=== PATIENT | female | born 1980 | race Two or more races ===

== ENCOUNTER 2025-03-28 01:17 | Emergency (ER) | payer OTHER, SELFPAY ==
[2025-03-28 01:19] VITALS: PULSE 86; RESP 18; O2SAT 98; BMI 36.6
[2025-03-28 01:47] VITALS: BP 134/78; PULSE 83; RESP 18; TEMP 36.4; O2SAT 97
--- NOTE | 2025-03-28 03:47 | PD.EDHEAD ---
ED Head Injury RME/HPI General Chief complaint: Head Injury Stated complaint: TRIPPED AND HIT RIGHT SIDE OF HEAD ON WALL Time Seen by Provider: 03/28/25 03:31 Arrival date/time: 03/28/25 01:17 RME / HPI RME / HPI Narrative: 44-year-old female presents to the ED with a complaint of right-sided head pain secondary to tripping and hitting her head against the door jam. She states she has been dizzy for the past few days. She had a recent bout of gastroenteritis where she had 6 bouts of vomiting and approximately 4 bouts of diarrhea over 2-day period last Thursday/Thursday. She states her urine has been strong. She denies any fever, chills, cough, upper respiratory complaints, nausea or vomiting, diarrhea or abdominal pain in the last few days. MD Complaint: head injury Related Data Allergies Allergy/AdvReac Type Severity Reaction Status Date / Time No Known Allergies Allergy Verified 03/28/25 01:19 Review of Systems Review of Systems Systems Reviewed: All systems reviewed, normal except as documented Past Medical History Social History SMOKING STATUS: Never smoker ED Exam Narrative Physical exam: A&O, afebrile and non-toxic appearing 44-year-old female, no acute distress. Lung are clear, RRR, Abdomen is non-distended. Pupils are PERRL, EOMs intact. TMs and pharynx without erythema. Nares are pale and boggy. Cranial nerves II through XII grossly intact. Sensory and motor are intact to the face. Neck is supple, tenderness noted to the cervical spine area. 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 DTRs intact to bilateral upper and lower extremities. Moves all extremities well. Course Course Course Narrative: CBC reveals elevated WBCs 11.6 with normal H&H and normal platelets. CMP electrolytes are essentially normal with a minimally elevated glucose of 119. Renal function and liver function are normal. Urinalysis reveals 1+ bacteria however only 1 WBC and 1 RBC is noted with negative leukocyte esterase and negative nitrates. Urine hCG is negative and urine drug screen is negative. CT cervical spine reveals no acute process. CT brain reveals no acute process. Congenital arachnoid cyst noted. No midline shift, no mass effect, and no hemorrhage noted. Quality Measures none Orders Category Date Time Status CT cervical spine wo con Stat Exams 03/28/25 03:[address] head/brain wo con Stat Exams 03/28/25 03:51 Taken CBC Stat Lab 03/28/25 04:36 Completed CMP [Comprehensive Metabolic Panel] Stat Lab 03/28/25 04:36 Completed Drug Screen,Urine Stat Lab 03/28/25 04:40 Completed HCG Qualitative,Urine Stat Lab 03/28/25 04:40 Completed Urinalysis, C/S if Indicated Stat Lab 03/28/25 04:40 Completed Urine Culture Stat Lab 03/28/25 04:40 Received Vital Signs Vital signs: Vital Signs Temperature 97.6 F 03/28/25 01:47 Pulse Rate 83 03/28/25 01:47 Respiratory Rate 18 03/28/25 01:47 Blood Pressure 134/78 H 03/28/25 01:47 Pulse Oximetry (%) 97 03/28/25 01:47 Oxygen Delivery Method Room Air 03/28/25 01:47 Head Injury MDM Narrative MDM Narrative:: Symptoms, exam and diagnostic studies are consistent with: Closed head injury without loss of consciousness. Patient was discharged home in stable condition. Patient/family advised to follow-up with their PCP in 24-48 hours. Encouraged to return to the ED for any new or worsening symptoms. Patient data External records reviewed:: None Clinical information provided by:: patient Social determinants that could affect healthcare access:: none Patient has the following chronic illnesses:: N/A How is presenting disease/condition affected by chronic disease/condition?: no chronic disease Evaluation data The following diagnostics were reviewed and interpreted by me:: lab results and radiology exam(s) Lab and/or radiology exams considered but not ordered:: N/A Interpretation Summary: As noted above Medications / Prescriptions Medications or Prescriptions considered but not ordered:: N/A Medication administrations:: N/A Consultations Consultation(s) initiated? (list below): No Diagnosis Differential diagnosis head injury: concussion without loss of consciousness, closed head injury and subdural hematoma Most likely diagnosis given after review of the tests above:: Closed head injury without loss of consciousness. Admission Indicated Admission indicated?: not indicated Explain why admission is indicated or not indicated:: Stable for discharge Admission Request Was there a request for admission?: No Admission Attestation Admission request attestation: N/A Disposition Plan Disposition Plan: Discharge Discharge Attestation Discharge Attestation: The patient and all family members were given an opportunity to ask questions and understood the discharge instructions. Discharge instructions specifically effects, indications for sooner follow up or return to the emergency department, and the expected course of current diagnosis. Patient condition: Stable Discharge Plan Plan Patient Disposition: HOME (Self Care) Discharge Disposition comment: Stable Prescriptions/Referrals Referrals: No Primary/Family,Physician [Primary Care Provider] - In 1 week Problem List Clinical Impression: Closed head injury Patient/Caregiver Discharge Instructions Education Materials: ED Head Injury (Adult) Additional Instructions: Follow-up with your primary care physician in 24 to 48 hours. Return to the ED for any new or worsening symptoms. Print Language: Yoruba Stand Alone Forms: [place] Award Info., Patient Portal Info Letter PA/STAKING TECHNICIAN Supervising Physician PA/FRANCISCO Supervising Physician: Dr. Dugan
--- NOTE | 2025-03-28 03:51 | XR_ITS ---
Examination: CT brain head without contrast. 2-D sagittal coronal reconstructions Date and time of exam:March 28, 2025, 0406 hours INDICATIONS: Ground-level fall today with injury to the head, head pain CTDI: vol (mGy):52.5 DLP: (mGycm):1018 Technique: Multiple CT axial sections of the brain have been obtained, 5 mm slice thickness. Contrast has not been administered. 2-D sagittal, coronal reconstructions have been obtained Low dose protocols were performed. One or more of the following dose reduction techniques were used; automated exposure control, adjustment of the mA and/or KV according to patient size, use of iterative reconstruction technique. Findings: No significant ventricular enlargement. Frontal cortical atrophy Intra-axial or extra-axial hemorrhage density is not seen. No mass effect or midline shift Basal cisterns are not remarkable. Fourth ventricle is midline. Cranial vault intact. Impression: Negative for acute hemorrhage, mass effect or midline shift
--- NOTE | 2025-03-28 03:51 | XR_ITS ---
Examination: CT cervical spine without contrast 2-D sagittal reconstructions 2-D coronal reconstructions 3-D reconstructions. Exam date and time:March 28, 2029, 0406 hours INDICATIONS: Patient tripped and fell today with injury to the neck, neck pain CTDI:vol (mGy) 19 DLP: (mGycm) 361 Technique: Multiple 2 mm axial sections of the cervical spine have been obtained. The coronal and sagittal reconstructions have been obtained. 3-D reconstructions have been obtained. Low dose protocols were performed. One or more of the following dose reduction techniques were used; automated exposure control, adjustment of the mA and/or KV according to patient size, use of iterative reconstruction technique. Findings: Axial sections demonstrate intact base of the skull. C1 exhibit satisfactory relationship to the odontoid. No acute cervical vertebral body fracture seen. Alignment posterior spinous processes satisfactory. Impression: No acute cervical fracture.
--- NOTE | 2025-03-28 04:29 | PRELIM_ITS ---
CT scan of the head without intravenous contrast (axial sections with sagittal and coronal reformats). March 28, 2025 0406 hours Clinical History: Head injury, dizziness Comparison: None Findings: There is prominence of the extra-axial space overlying the parasagittal frontal convexities, cannot exclude arachnoid cysts in these regions. There is no intracranial hemorrhage or midline shift. There is good swain-white differentiation. There is no CT evidence of acute large vascular territorial infarct. Ventricles are not enlarged or effaced. There is atherosclerotic calcification along the supraclinoid left internal carotid artery. Visualized paranasal sinuses and tympanomastoid cavities are clear. The bony calvarium is intact. Impression: Possible congenital arachnoid cyst along the parasagittal frontal lobes bilaterally. This may be better evaluated with nonemergent MRI of the brain if clinically feasible. No intracranial hemorrhage or midline shift. No CT evidence of acute large vascular territorial infarct. Report Electronically Signed By: Randolph Beltran 03/28/2025 4:29:39 AM [EST]
--- NOTE | 2025-03-28 04:33 | PRELIM_ITS ---
CT scan of the cervical spine without intravenous contrast (axial sections with sagittal and coronal reformats). March 28, 2025 0406 hours Clinical History: Head injury, neck pain Comparison: None Findings: There is no fracture, traumatic subluxation or other acute osseous abnormality of the cervical spine. There is straightening of the cervical spine curvature with loss of normal cervical lordosis. There are multilevel degenerative disc changes and spondylosis of the cervical spine with multilevel foraminal stenosis. There is no prevertebral soft tissue swelling. Impression: No acute osseous abnormality abnormal of the cervical spine. Straightening of the cervical spine may indicate muscle spasm. Degenerative change. Report Electronically Signed By: Randolph Beltran 03/28/2025 4:32:41 AM [EST]
[2025-03-28 05:12] LABS: Collection Type, Urine Clean Catch
[2025-03-28 05:20] LABS: Bacteria,Urine 1+; Bilirubin,Urine Negative (Negative); Blood,Urine Negative (Negative); Clarity,Urine Clear (Clear/Hazy); Color,Urine Colorless (Lt Yel-Yel); Glucose, Urine Negative (Negative); Ketones,Urine Negative (Negative); Leukocyte Esterase,Urine Negative (Negative); Nitrite,Urine Negative (Negative); PH,Urine 6.0 (5.0-7.0); Protein,Urine Negative (Neg - Trace); RBC,Urine 1 /hpf (0-3); Specific Gravity,Urine 1.006 (1.001-1.035); Squamous Epithelial Cell,Urine 1 /hpf (0-5); Urobilinogen,Urine Negative mg/dL (0.0-1.0); WBC,Urine 1 /hpf (0-5)
[2025-03-28 05:21] LABS: Culture Indicated,Urine Yes; HCG Qualitative,Urine Negative
[2025-03-28 05:30] LABS: Amphetamine/Methamp Scrn,U Negative (Negative); Barbiturate Screen,Urine Negative (Negative); Benzodiazepines Screen,Urine Negative (Negative); Benzoylecgonine Screen, Ur Negative (Negative); Fentanyl Screen,Urine Negative (Negative); Opiate Screen,Urine Negative (Negative); THC Screen,Urine Negative (Negative)
[2025-03-28 06:05] LABS: Basophils # (Auto) 0.1 Thou/mm3 (0.0-0.2); Basophils % (Auto) 1 % (0-2.5); Eosinophils # (Auto) 0.2 Thou/mm3 (0.0-0.5); Eosinophils % (Auto) 2 % (0-10); Hematocrit 39.6 % (36.0-46.0); Hemoglobin 12.8 g/dL (12.0-16.0); Immature Granulocytes Auto 0.19 Thou/mm3 (0.00-0.00); Lymphocytes # (Auto) 4.3 Thou/mm3 (1.0-4.8); Lymphocytes % (Auto) 37 % (10-50); Mean Corpuscular HGB Conc 32.3 g/dl (31.0-37.0); Mean Corpuscular Hemoglobin 25.1 pg (25.0-35.0); Mean Corpuscular Volume 78 fL (80-100); Monocytes # (Auto) 0.4 Thou/mm3 (0.0-0.8); Monocytes % (Auto) 3 % (0-12); Neutrophils # (Auto) 6.5 Thou/mm3 (1.8-7.7); Neutrophils % (Auto) 56 % (37-80); Nucleated Red Blood Cell # 0.00 Thou/mm3 (0.00-0.00); Nucleated Red Blood Cell % 0 /100 WBC (0); Platelet Count 416 Thou/mm3 (140-440); RDW Standard Deviation 50.0 fL (36.4-46.3); Red Blood Count 5.10 Miln/mm3 (4.00-5.20); White Blood Count 11.6 Thou/mm3 (3.6-11.0)
[2025-03-28 06:12] LABS: Alanine Aminotransferase 13 U/L (10-49); Albumin, Serum 4.8 gm/dL (3.5-5.0); Albumin/Globulin Ratio 1.5 (1.2-2.2); Alkaline Phosphatase 74 U/L (46-116); Anion Gap 10 (7-16); Aspartate Amino Transferase 14 U/L (0-34); BUN/Creatinine Ratio 10 Ratio (12-20); Bilirubin,Total < 0.2 mg/dL (0.3-1.2); Blood Urea Nitrogen 7 mg/dL (9-23); Calcium 9.6 mg/dL (8.3-10.6); Calcium (Corrected) 9.6 mg/dL (8.5-10.1); Carbon Dioxide 25.6 mMol/L (20.0-31.0); Chloride 108 mMol/L (98-107); Creatinine (Component) 0.7 mg/dL (0.6-1.3); Estimated Creatinine Clearance 109.7 mL/min (>60); Globulin 3.3 gm/dL (2.3-3.5); Glucose 119 mg/dL (74-106); Osmolality,Calculated 285 (275-295); Potassium 3.8 mMol/L (3.4-5.1); Sodium 144 mMol/L (136-145); Total Protein 8.1 gm/dL (5.7-8.2); eGFR > 60 See Note
[2025-03-28 06:25] VITALS: BP 129/77; PULSE 76; RESP 18; TEMP 36.6; O2SAT 96
[2025-03-28] MEDS: KETOROLAC INJ 60 MG/2 ML VIAL 30 MG IM (07:25)
== END 2025-03-28 07:30 | disposition home or self-care (01) ==
PROVIDERS: Physician Assistant; Emergency Provider Emergency Medicine
DX: S09.90XA Unspecified injury of head, initial encounter (principal); R73.9 Hyperglycemia, unspecified; D72.829 Elevated white blood cell count, unspecified; W01.198A Fall on same level from slipping, tripping and stumbling with subsequent striking against other object, initial encounter
CPT/HCPCS: 36415; 70450; 72125; 80053; 80307; 81001; 81025; 85025; 87086; 96372; 99283; J1885